=== PATIENT | male | born 2000 | race Hispanic/Latino ===

== ENCOUNTER 2021-01-25 00:08 | Emergency (ER) | payer SELFPAY | END 2021-01-25 01:05 | disposition home or self-care (01) | LOC: CSHERS 00:08 | DX: S39.012A Strain of muscle, fascia and tendon of lower back, initial encounter (principal); X50.0XXA Overexertion from strenuous movement or load, initial encounter; Y93.43 Activity, gymnastics | CPT/HCPCS: 72100; 72170 ==

== ENCOUNTER 2021-11-25 23:39 | Emergency (ER) | payer SELFPAY | END 2021-11-26 02:36 | disposition home or self-care (01) | LOC: CSHERS 23:39 | DX: L25.9 Unspecified contact dermatitis, unspecified cause (principal) | CPT/HCPCS: 99282 ==